=== PATIENT | male | born 1980 | race African-American/Black ===

== ENCOUNTER 2022-07-07 09:19 | Outpatient (REF) | payer OTHER, SELFPAY ==
[2022-07-07 10:17] LABS: Binax Internal Control QC Valid; Binax Now Covid-19 Ag Positive (Negative); Binax Performed by: HO.BONILM
== END 2022-07-07 09:20 | disposition home or self-care (01) ==
LOC: HO.HMGCLDS 09:19
PROVIDERS: Visit Provider Physician Assistant
DX: Z20.822 Contact with and (suspected) exposure to COVID-19 (principal); B34.9 Viral infection, unspecified
CPT/HCPCS: 87811; C9803